=== PATIENT | female | born 1985 | race Caucasian/White ===

== ENCOUNTER 2016-11-16 19:56 | Inpatient (IN) ==
[2016-11-16] MEDS ORDERED: STADOL IV PRN (20:06)
[2016-11-16] MEDS ORDERED: AMBIEN PO PRN (21:00)
[2016-11-16] MEDS: LR 1,000 ML IV SCH (21:02)
[2016-11-16] MEDS: TYLENOL PO PRN (21:13)
[2016-11-16] MEDS: CYTOTEC PO ONE (21:13)
[2016-11-16 21:50] LABS: MANUAL DIFF NEEDED? NO
[2016-11-16 21:54] LABS: BASO% 0.1 % (0.0-0.8); EOS# 0.04 X1000 (0.0-0.7); EOS% 0.4 % (0.0-10.0); HEMOGLOBIN 13.6 g/dL (12.0-16.0); IMM GRAN# 0.01 X1000 (0.0-0.04); IMM GRAN% 0.1 % (0.0-0.5); LYMPH# 2.36 X1000 (1.2-3.4); LYMPH% 25.8 % (20.5-51.1); MCH 30.6 PG (27-31); MCHC 34.9 g/dL (33-37); MCV 87.8 FL (81-99); MONO# 0.84 X1000 (0.11-0.59); MONO% 9.2 % (1.7-9.3); MPV 11.8 FL (7.4-10.4); NEUT% 64.4 % (42.2-75.2); PLT 227 X1000 (130-400); RBC 4.44 XMIL (4.2-5.4)
[2016-11-17 01:07] LABS: URINE MICROSCOPIC NEEDED? NO; URINE SOURCE VOIDED
[2016-11-17 01:26] LABS: BILIRUBIN URINE NEGATIVE (NEGATIVE); BLOOD URINE NEGATIVE (NEGATIVE); CLARITY CLEAR (CLEAR); COLOR YELLOW; GLUCOSE URINE NEGATIVE (NEGATIVE); LEUKOCYTES URINE NEGATIVE (NEGATIVE); NITRITE URINE NEGATIVE (NEGATIVE); PROTEIN URINE NEGATIVE (NEGATIVE); SP GRAVITY URINE 1.005; UROBILINOGEN URINE 1+(1 mg/dL)
[2016-11-17 01:35] LABS: UR AMPHETAMINES QUAL NONE DETECTED (NONE DETECT); UR BARBITUATES QUAL NONE DETECTED (NONE DETECT); UR BENZODIAZEPIN QUAL PRESUMPTIVE POSITIVE (NONE DETECT); UR CANNABINOIDS QUAL NONE DETECTED (NONE DETECT); UR COCAINE QUAL NONE DETECTED (NONE DETECT); UR MDMA QUAL NONE DETECTED (NONE DETECT); UR METHADONE QUAL NONE DETECTED (NONE DETECT); UR METHAMPHETAMINE QUAL NONE DETECTED (NONE DETECT); UR OPIATES QUAL NONE DETECTED (NONE DETECT); UR OXYCODONE QUAL NONE DETECTED (NONE DETECT); UR PCP QUAL NONE DETECTED (NONE DETECT); UR TCA QUAL NONE DETECTED (NONE DETECT)
[2016-11-17] MEDS: LR 1,000 ML IV SCH ×2 (04:15→17:10)
[2016-11-17] MEDS ORDERED: CYTOTEC PO ONE (06:00)
[2016-11-17] MEDS: STADOL IV PRN ×7 (08:35→23:15)
[2016-11-17] MEDS: CYTOTEC PO SCH ×4 (10:07→22:01)
[2016-11-17] MEDS: TYLENOL PO PRN (18:10)
[2016-11-18] MEDS ORDERED: SODIUM CHLORIDE 0.9% INJ PRN (00:25)
[2016-11-18] MEDS: DEMEROL IV PRN ×2 (00:36→04:17)
[2016-11-18] MEDS: PHENERGAN IV PRN ×2 (00:36→04:17)
[2016-11-18] MEDS: CYTOTEC PO SCH ×3 (02:06→08:56)
[2016-11-18] MEDS: LR 1,000 ML IV SCH ×2 (06:25→09:24)
[2016-11-18] MEDS ORDERED: PITOCIN 30 UNITS/LR 30 UNITS/500 ML IV.SOLN IV SCH (06:58)
[2016-11-18] MEDS: STADOL IV PRN (07:23)
[2016-11-18] MEDS ORDERED: CYTOTEC PO ONE (08:45)
[2016-11-18] MEDS ORDERED: CYTOMEL PO ONE (08:54)
[2016-11-18] MEDS: CYTOTEC PO ONE (08:56)
[2016-11-18] MEDS ORDERED: SODIUM CHLORIDE 0.9% INJ ONE (12:02)
[2016-11-18] MEDS ORDERED: BICITRA PO ONE (12:02)
[2016-11-18] MEDS ORDERED: PEPCID IV ONE (12:02)
[2016-11-18] MEDS ORDERED: KEFZOL 1 GM/D5W 1 GM/50 ML IVPB IV ONE (12:03)
[2016-11-18] MEDS ORDERED: XYLOCAINE-MPF 2% ONE ×2 (12:13→12:21)
[2016-11-18] MEDS ORDERED: VERSED ONE (12:14)
[2016-11-18] MEDS ORDERED: FENTANYL ONE (12:22)
[2016-11-18] MEDS ORDERED: DIPRIVAN 1% ONE (12:22)
[2016-11-18] MEDS ORDERED: TORADOL ONE ×2 (12:50→13:41)
[2016-11-18] MEDS ORDERED: DECADRON ONE (13:33)
[2016-11-18] MEDS ORDERED: ZOFRAN ONE (13:33)
[2016-11-18] MEDS ORDERED: XYLOCAINE-MPF 1% INJ PRN (13:37)
[2016-11-18] MEDS ORDERED: HYDROXYZINE IM PRN (13:37)
[2016-11-18] MEDS ORDERED: CYTOTEC PO PRN (13:37)
[2016-11-18] MEDS ORDERED: PITOCIN IM PRN (13:37)
[2016-11-18] MEDS ORDERED: NORCO-10 PO PRN (13:37)
[2016-11-18] MEDS ORDERED: MINERAL OIL PO PRN (13:37)
[2016-11-18] MEDS ORDERED: BENADRYL IV PRN (13:37)
[2016-11-18] MEDS ORDERED: BENADRYL PO PRN (13:37)
[2016-11-18] MEDS ORDERED: PITOCIN 30 UNITS/LR 30 UNITS/500 ML IV.SOLN IV ONE (13:37)
[2016-11-18] MEDS ORDERED: NORCO-5 PO PRN (13:37)
[2016-11-18] MEDS ORDERED: BOOSTRIX VACCINE IM ONE (13:37)
[2016-11-18] MEDS ORDERED: M-M-R II VACCINE SUBQ ONE (13:37)
[2016-11-18] MEDS ORDERED: PERI MEDS (DERMOPLAST/NUPERCAINAL/TUCKS) MISC PRN (13:37)
[2016-11-18] MEDS ORDERED: HYDROXYZINE PO PRN (13:37)
[2016-11-18] MEDS ORDERED: PITOCIN 20 UNITS/LR 20 UNITS/1,000 ML IV.SOLN IV SCH (13:37)
[2016-11-18] MEDS ORDERED: AMBIEN PO PRN (13:37)
[2016-11-18] MEDS ORDERED: ROBINUL ONE (13:43)
[2016-11-18] MEDS ORDERED: NEOSTIGMINE ONE (13:43)
[2016-11-18] MEDS ORDERED: LR 1,000 ML ONE (13:54)
[2016-11-18] MEDS: MOTRIN PO PRN ×2 (14:50→22:33)
--- NOTE | 2016-11-18 16:48 | OPERATIVE NOTE ---
PROCEDURE DATE: 11/18/2016 DIAGNOSIS: Intrauterine at 17 weeks. demise. POST DELIVERY DIAGNOSIS: Intrauterine at 17 weeks. demise. PROCEDURE PERFORMED: Vaginal delivery of a nonviable . PHYSICIAN: Tenzin Mares MD. ANESTHESIA: IV sedation. FINDINGS: Nonviable, slightly smaller than 17 week appearing . Very thin cord. There are no lacerations or tears. All counts were correct. Will continue Cytotec and hope that the placenta delivers spontaneously. cc: MD Sohail Iqbal MD
--- NOTE | 2016-11-18 17:08 | OPERATIVE NOTE ---
PROCEDURE DATE: 11/18/2016 PREOPERATIVE DIAGNOSIS: Retained placenta. POSTOPERATIVE DIAGNOSIS: Retained placenta. PROCEDURE: D C. PHYSICIAN: Tenzin Mares MD. ANESTHESIA: General endotracheal with Dr. Wood. FINDINGS: Retained placenta. PATHOLOGY: Placenta. DRAINS: None. ESTIMATED BLOOD LOSS: 200 mL. DESCRIPTION OF PROCEDURE: Ms. Almeida had a vaginal delivery of a nonviable 17 week infant. Placenta despite giving adequate time did not deliver, so she was brought to the operating room where she was placed under general endotracheal anesthesia and prepped and draped in a sterile dorsal lithotomy position. The anterior lip of the cervix was grasped with a ring forceps and ring forceps were used to gently tease out the center of the placenta. A chunk came out. Then sharp curetting was done until no further tissue was felt. At which point, the uterus was vigorously massaged and patient was given 800 mg of Cytotec rectally and a shot of Toradol. Expect routine recovery time. All counts were correct. cc: MD Sohail Iqbal MD
[2016-11-18 20:23] VITALS: BP 127/60
[2016-11-18] MEDS ORDERED: WELLBUTRIN SR PO SCH (21:00)
[2016-11-18] MEDS ORDERED: PERICOLACE PO SCH (21:00)
[2016-11-19 05:08] LABS: MANUAL DIFF NEEDED? NO
[2016-11-19 05:40] LABS: BASO% 0.1 % (0.0-0.8); EOS# 0.01 X1000 (0.0-0.7); EOS% 0.1 % (0.0-10.0); HEMOGLOBIN 7.3 g/dL (12.0-16.0); IMM GRAN# 0.02 X1000 (0.0-0.04); IMM GRAN% 0.2 % (0.0-0.5); LYMPH# 1.61 X1000 (1.2-3.4); LYMPH% 16.5 % (20.5-51.1); MCH 29.7 PG (27-31); MCHC 33.2 g/dL (33-37); MCV 89.4 FL (81-99); MONO# 0.82 X1000 (0.11-0.59); MONO% 8.4 % (1.7-9.3); MPV 11.4 FL (7.4-10.4); NEUT% 74.7 % (42.2-75.2); PLT 173 X1000 (130-400); RBC 2.46 XMIL (4.2-5.4)
== END 2016-11-19 10:15 | disposition home or self-care (01) ==
LOC: P.LD 19:56
PROVIDERS: ADMIT Obstetrics & Gynecology; ATTEND Obstetrics & Gynecology